=== PATIENT | male | born 1970 | race Caucasian/White ===

== ENCOUNTER 2022-02-12 14:08 | Emergency (ER) | payer SELFPAY ==
--- OUTSIDE RECORDS SUMMARY | 2022-02-12 14:13 | XMS REPORT | Continuity of Care Document ---
:1970 Author Organization [facility] t Address [address] [place] [address] Dr. Chiang [address] [place] [id number] Care Team Providers Name Role Phone Unavailable Unavailable Unavailable Problems This patient has no known problems. Allergies, Adverse Reactions, Alerts This patient has no known allergies or adverse reactions. Medications This patient has no known medications. Procedures This patient has no known procedures. Results This patient has no known results.
[2022-02-12] MEDS ORDERED: HYDROCOD 2.5mg-ACETAMIN 108mg/5mL Soln ONE (14:41)
--- NOTE | 2022-02-12 17:09 | RAD REPORT ---
EXAM DESCRIPTION: CT - Head Brain Wo Cont - 02/12/2022 4:56 pm CLINICAL HISTORY: Headache COMPARISON: No comparisons TECHNIQUE: Axial 5 mm thick images of the head were obtained without IV contrast. All CT scans are performed using dose optimization technique as appropriate and may include automated exposure control or mA/KV adjustment according to patient size. FINDINGS: No subarachnoid hemorrhage or other intracranial hemorrhagic process. No mass, edema or sh ift of mid-line structures. No acute infarction changes seen. No abnormal extra-axial fluid collectio ns. Ventricles are normal. Mastoid air cells and visualized portions of the paranasal sinuses are clear. No acute bony findings. IMPRESSION: Negative non-contrast CT head examination.
--- NOTE | 2022-02-12 17:12 | RAD REPORT ---
EXAM DESCRIPTION: CT - Head angio - 02/12/2022 4:56 pm CLINICAL HISTORY: Headache, sudden, severe TECHNIQUE: During dynamic enhancement using nonionic IV contrast, axial 1 millimeter thick images of the head were obtained. Sagittal and axial reconstruction images were generated using MIP technique and reviewed. All CT scans are performed using dose optimization technique as appropriate and may include automated exposure control or mA/KV adjustment according to patient size. COMPARISON: CT head same date FINDINGS: No aneurysm or vascular malformation identified. Major venous sinuses are patent. No stenosis, named branch occlusion, vasculitis or other significant vascular finding identifiable. L eft vertebral artery is dominant as a normal variant. IMPRESSION: Negative CT angio head examination.
--- NOTE | 2022-02-12 18:00 | ER ---
Nurse's Notes [facility] Name: Memo Nieves Age: 51 yrs Sex: Male : 1970 Arrival Date: 02/12/2022 Time: 14:12 Bed Treatment Private MD: Diagnosis: Headache;Restlessness and agitation Presentation: 02/12 14:26 Chief complaint: Patient states: Headache X 4 days. Denies previous headache history. ld1 No fever. Nausea. Coronavirus screen: At this time, the client does not indicate any symptoms associated with coronavirus-19. Ebola Screen: No symptoms or risks identified at this time. Initial Sepsis Screen: Does the patient meet any 2 criteria? No. Patient's initial sepsis screen is negative. Does the patient have a suspected source of infection? No. Patient's initial sepsis screen is negative. Risk Assessment: Do you want to hurt yourself or someone else? Patient reports no desire to harm self or others. Onset of symptoms was February 12, 2022. 14:26 Method Of Arrival: Ambulatory ld1 14:26 Acuity: SONI 3 ld1 Triage Assessment: 14:24 Headache History: Denies prior headaches. General: Appears in no apparent distress. ld1 comfortable, Behavior is calm, cooperative, appropriate for age. Pain: Complains of pain in occipital area Pain does not radiate. Pain currently is 8 out of 10 on a pain scale. Quality of pain is described as sharp, shooting, stabbing, throbbing. Pain: Pain began suddenly, Is continuous, Also complains of nausea. EENT: No signs and/or symptoms were reported regarding the EENT system. Neuro: Level of Consciousness is awake, alert, obeys commands, Oriented to person, place, time, situation. Cardiovascular: Capillary refill < 3 seconds Patient's skin is warm and dry. Respiratory: Airway is patent Respiratory effort is even, unlabored. GI: Abdomen is flat, non-distended. : No signs and/or symptoms were reported regarding the genitourinary system. Derm: No signs and/or symptoms reported regarding the dermatologic system. Musculoskeletal: No signs and/or symptoms reported regarding the musculoskeletal system. Historical: - Allergies: 14:24 No Known Allergies; ld1 - Home Meds: 14:24 None [Active]; ld1 - PMHx: 14:24 None; ld1 - PSHx: 14:24 None; ld1 - Immunization history:: Adult Immunizations up to date, Client reports having NOT received the Covid vaccine. - Social history:: Smoking status: Patient reports the use of cigarette tobacco products, smokes one-half pack cigarettes per day, Patient/guardian denies using alcohol. Screenin:17 Abuse screen: Denies threats or abuse. Denies injuries from another. Nutritional iw screening: No deficits noted. Tuberculosis screening: No symptoms or risk factors identified. Fall Risk IV access (20 points). Assessment: 18:12 Reassessment: Patient appears in no apparent distress at this time. Patient and/or iw family updated on plan of care and expected duration. Pain level reassessed. Patient is alert, oriented x 3, equal unlabored respirations, skin warm/dry/pink. Vital Signs: 14:26 BP 168 / 101; Pulse 59; Resp 18; Temp 97.1(TE); Pulse Ox 99% on R/A; Weight 81.65 kg; ld1 Height 5 ft. 7 in. (170.18 cm); Pain 8/10; 14:26 Body Mass Index 28.19 (81.65 kg, 170.18 cm) ld1 Otho Coma Score: 18:00 Eye Response: spontaneous(4). Verbal Response: oriented(5). Motor Response: obeys snw commands(6). Total: 15. ED Course: 14:12 Patient arrived in ED. rg4 14:26 Arm band placed on right wrist. ld1 14:27 Triage completed. ld1 14:32 [facility] Que[facility]C [facility]. snw 14:32 Bryan Allred MD is Attending Physician. snw 16:15 Inserted saline lock: 20 gauge. iw 16:20 Kylee Avalos, RN is Primary Nurse. iw 16:[address] In Process Unspecified. EDMS 16:58 CT Head Brain wo Cont In Process Unspecified. EDMS 18:15 Patient has correct armband on for positive identification. iw 18:54 No provider procedures requiring assistance completed. IV discontinued, intact, iw bleeding controlled, No redness/swelling at site. Pressure dressing applied. Administered Medications: 14:38 Drug: Lortab (HYDROcodone-acetaminophen) Liquid 10 ml Route: PO; eh3 15:00 Follow up: Response: No adverse reaction iw 18:17 Drug: Ketorolac 30 mg Route: IVP; Site: right antecubital; [facility] 18:35 Follow up: Response: No adverse reaction iw 18:17 Drug: Magnesium Oxide 400 mg Route: PO; [facility] 18:30 Follow up: Response: No adverse reaction iw 18:20 CANCELLED (order changee): Valium (diazepam) 2 mg IVP once snw 18:21 Drug: Valium (diazepam) 5 mg Route: IVP; Site: right antecubital; [facility] 18:45 Follow up: Response: No adverse reaction iw Medication: 18:15 VIS not applicable for this client. iw Outcome: 18:00 Discharge ordered by . snw 18:53 Discharged to home ambulatory, with family. iw 18:53 Condition: good 18:53 Discharge instructions given to patient, Instructed on discharge instructions, follow up and referral plans. Demonstrated understanding of instructions, follow-up care. 18:54 Patient left the ED. iw Signatures: Dispatcher [employer] EDMS Faye Quezada, GEOSPATIAL ANALYST-C GEOSPATIAL ANALYST-Csnw Kylee Avalos, RN RN iw Chela Powell rg4 Marlene Hurd RN RN ld1 Shraddha Parish RN RN jh5 Ana Beard RN RN 3 Corrections: (The following items were deleted from the chart) 18:19 18:16 Valium (diazepam) 2 mg IVP in left antecubital [place] [id number]
--- NOTE | 2022-02-12 18:00 | EDPHYS ---
Physician Documentation [facility] Name: Memo Nieves Age: 51 yrs Sex: Male : 1970 Arrival Date: 02/12/2022 Time: 14:12 Bed Treatment Private MD: ED Physician Bryan Allred HPI: 02/12 15:53 This 51 yrs old Male presents to ER via Ambulatory with complaints of Headache. snw 15:53 The patient complains of pain to the left frontal area, left side of the back of head, snw left temporal area, left occipital area and left base of the skull. The patient describes the headache as throbbing, a thunder clap. Historical: - Allergies: 14:24 No Known Allergies; ld1 - Home Meds: 14:24 None [Active]; ld1 - PMHx: 14:24 None; ld1 - PSHx: 14:24 None; ld1 - Immunization history:: Adult Immunizations up to date, Client reports having NOT received the Covid vaccine. - Social history:: Smoking status: Patient reports the use of cigarette tobacco products, smokes one-half pack cigarettes per day, Patient/guardian denies using alcohol. ROS: 14:35 Constitutional: Negative for fever, chills, and weight loss, Eyes: Negative for injury, snw pain, redness, and discharge, ENT: Negative for injury, pain, and discharge, Neck: Negative for injury, pain, and swelling, Cardiovascular: Negative for chest pain, palpitations, and edema, Respiratory: Negative for shortness of breath, cough, wheezing, and pleuritic chest pain, Abdomen/GI: Negative for abdominal pain, nausea, vomiting, diarrhea, and constipation, Back: Negative for injury and pain, : Negative for injury, bleeding, discharge, and swelling, MS/Extremity: Negative for injury and deformity, Skin: Negative for injury, rash, and discoloration, Psych: Negative for depression, anxiety, suicide ideation, homicidal ideation, and hallucinations. 14:35 Neuro: Positive for headache, of the occipital area -left. Exam: 14:35 Constitutional: This is a well developed, well nourished patient who is awake, alert, snw and in no acute distress. Head/Face: Normocephalic, atraumatic. Eyes: Pupils equal round and reactive to light, extra-ocular motions intact. Lids and lashes normal. Conjunctiva and sclera are non-icteric and not injected. Cornea within normal limits. Periorbital areas with no swelling, redness, or edema. ENT: Nares patent. No nasal discharge, no septal abnormalities noted. Tympanic membranes are normal and external auditory canals are clear. Oropharynx with no redness, swelling, or masses, exudates, or evidence of obstruction, uvula midline. Mucous membranes moist. Neck: Trachea midline, no thyromegaly or masses palpated, and no cervical lymphadenopathy. Supple, full range of motion without nuchal rigidity, or vertebral point tenderness. No Meningismus. Chest/axilla: Normal chest wall appearance and motion. Nontender with no deformity. No lesions are appreciated. Cardiovascular: Regular rate and rhythm with a normal S1 and S2. No gallops, murmurs, or rubs. Normal PMI, no JVD. No pulse deficits. Respiratory: Lungs have equal breath sounds bilaterally, clear to auscultation and percussion. No rales, rhonchi or wheezes noted. No increased work of breathing, no retractions or nasal flaring. Abdomen/GI: Soft, non-tender, with normal bowel sounds. No distension or tympany. No guarding or rebound. No evidence of tenderness throughout. Back: No spinal tenderness. No costovertebral tenderness. Full range of motion. Skin: Warm, dry with normal turgor. Normal color with no rashes, no lesions, and no evidence of cellulitis. MS/ Extremity: Pulses equal, no cyanosis. Neurovascular intact. Full, normal range of motion. Neuro: Awake and alert, GCS 15, oriented to person, place, time, and situation. Cranial nerves II-XII grossly intact. Motor strength 5/5 in all extremities. Sensory grossly intact. Cerebellar exam normal. Normal gait. Psych: Awake, alert, with orientation to person, place and time. Behavior, mood, and affect are within normal limits. Vital Signs: 14:26 BP 168 / 101; Pulse 59; Resp 18; Temp 97.1(TE); Pulse Ox 99% on R/A; Weight 81.65 kg; ld1 Height 5 ft. 7 in. (170.18 cm); Pain 8/10; 14:26 Body Mass Index 28.19 (81.65 kg, 170.18 cm) ld1 Juan Carlos Coma Score: 18:00 Eye Response: spontaneous(4). Verbal Response: oriented(5). Motor Response: obeys snw commands(6). Total: 15. MDM: 14:41 Patient medically screened. snw 18:00 Data reviewed: vital signs, nurses notes. Data interpreted: Pulse oximetry: on room air snw is 99 %. Interpretation: normal. Counseling: I had a detailed discussion with the patient and/or guardian regarding: the historical points, exam findings, and any diagnostic results supporting the discharge/admit diagnosis, the presence of at least one elevated blood pressure reading (>120/80) during this emergency department visit, radiology results, the need for outpatient follow up, to return to the emergency department if symptoms worsen or persist or if there are any questions or concerns that arise at home. Special discussion: I have referred the patient to see his PCP for further evaluation of high blood pressure. Based on the history and exam findings, there is no indication for further emergent testing or inpatient evaluation. I discussed with the patient/guardian the need to see the neurologist for further evaluation of the symptoms. I discussed with the patient/guardian the need to see the primary care provider for further evaluation of the symptoms. Medical screen evaluation completed. [facility] emergency medical condition absent. 18:57 Response to treatment: the patient's symptoms have mildly improved after treatment, the snw patient's symptoms have markedly improved after treatment. Special discussion: pt reports hot (140 degree) work environment, never drinks water, drinks coffee and monsters all day. Discussed danger in this habit, encouraged increased water intake. The dehydration associated with this practice is likely a cause of headache and bodyaches.. 02/12 16:07 Order name: SARS-COV-2 RT PCR (Document "Date of Onset" if Symptomatic); Complete Time: snw 17:44 02/12 14:34 Order name: Head Angio CT; Complete Time: 17:24 snw 02/12 14:34 Order name: CT Head Brain wo Cont; Complete Time: 17:24 snw Administered Medications: 14:38 Drug: Lortab (HYDROcodone-acetaminophen) Liquid 10 ml Route: PO; eh3 15:00 Follow up: Response: No adverse reaction iw 18:17 Drug: Ketorolac 30 mg Route: IVP; Site: right antecubital; [facility] 18:35 Follow up: Response: No adverse reaction iw 18:17 Drug: Magnesium Oxide 400 mg Route: PO; [facility] 18:30 Follow up: Response: No adverse reaction iw 18:20 CANCELLED (order changee): Valium (diazepam) 2 mg IVP once snw 18:21 Drug: Valium (diazepam) 5 mg Route: IVP; Site: right antecubital; [facility] 18:45 Follow up: Response: No adverse reaction iw Disposition Summary: 02/12/22 18:00 Discharge Ordered Location: Home snw Condition: Stable snw Diagnosis - Headache snw - Restlessness and agitation snw Followup: snw - With: Emergency Department - When: As needed - Reason: Worsening of condition Followup: snw - With: Private Physician - When: 2 - 3 days - Reason: Recheck today's complaints, Continuance of care, Re-evaluation by your physician Discharge Instructions: - Dehydration, Adult snw - General Headache Without Cause snw - Discharge Summary Sheet iw Forms: - Medication Reconciliation Form snw - Thank You Letter snw - Antibiotic Education snw - Prescription Opioid Use snw - Work release form iw Signatures: Dispatcher [employer] EDMS Faye Quezada FNP-C SPECTROGRAPHIC ANALYST-Csnw Marlene Hurd RN RN ld1 Shraddha Parish RN RN jh5 Ana Beard RN RN 3 Kylee Avalos RN iw Corrections: (The following items were deleted from the chart) 18:20 17:49 Valium (diazepam) 2 mg IVP once ordered. snw snw 18:20 18:17 Valium (diazepam) 2 mg IVP once given. 5 snw 18:20 18:19 Valium (diazepam) 2 mg IVP once ordered. 5 snw
[2022-02-12] MEDS ORDERED: MAGNESIUM OXIDE 400 MG TAB ONE (18:16)
[2022-02-12] MEDS ORDERED: KETOROLAC 30 MG/ML INJ ONE (18:16)
[2022-02-12] MEDS ORDERED: DIAZEPAM 10 MG/2 ML INJ SYRINGE ONE (18:19)
[2022-02-12 20:45] VITALS: BP 168/101; TEMP 97.1; O2SAT 99
== END 2022-02-12 18:54 | disposition home or self-care (01) ==
LOC: ER 14:08
DX: R51.9 Headache, unspecified (principal); R45.1 Restlessness and agitation; F17.210 Nicotine dependence, cigarettes, uncomplicated; Z20.822 Contact with and (suspected) exposure to COVID-19
CPT/HCPCS: 70450; 70496; 96374; 96375; 99283; J3360; Q9967; U0003